=== PATIENT | male | born 1985 | race Caucasian/White ===

== ENCOUNTER 2016-10-17 14:41 | Emergency (ER) | payer OTHER ==
[2016-10-17] MEDS ORDERED: KETOROLAC 30 MG/ML VIAL (J1885) As Ordered ONE (16:33)
--- NOTE | 2016-10-17 17:10 | REP ---
CT Head without contrast HISTORY: Headache COMPARISON: None There is no intraparenchymal hemorrhage, acute infarct, mass or midline shift. The ventricular system is normal in appearance. There is no extra cerebral collection. There is no fracture. The visualized sinuses are clear. IMPRESSION: There is no intracranial lesion. Signed by Jonh Iqbal MD 10/17/2016 05:01 P
--- NOTE | 2016-10-17 17:45 | EDDOCDS ---
Physician Documentation [facility] Name: Yimi Sanchez Age: 30 yrs Sex: Male : 1985 Arrival Date: 10/17/2016 Time: 14:41 Bed PD Private MD: NO PRIMARY PHYSICIAN, . Disposition: 10/17/16 17:36 Discharged to Home/Self Care. Impression: Headache, Cough. - Condition is Stable. - Discharge Instructions: Acute Bronchitis, General Headache Without Cause. - Prescriptions for Ultram 50 mg Oral Tablet - take 1 tablet by ORAL route every 6 hours As needed MDD: 4 tabs; 12 tablet. Prednisone 20 mg Oral Tablet - take 2 tablet by ORAL route once daily for 5 days; 10 tablet. - Medication Reconciliation, Local Pharmacy Hours form. - Follow up: Emergency Department; When: As needed. Follow up: [facility]; When: Call to arrange an appointment; Reason: Wound/Symptom Recheck, Recheck today's complaints, Worsening of conditions, Continuance of care, To establish care. - Problem is an ongoing problem. - Symptoms have improved. Historical: - Allergies: SULFA (SULFONAMIDES); - Home Meds: 1. amlodipine 5 mg Oral tab once daily 2. amoxicillin-pot clavulanate 875-125 mg Oral tab every 12 hours - PMHx: Hypertension; back pain; hearing issues; - PSHx: wisdom teeth; - Social history: Smoking status: Patient states was never smoker of tobacco. No barriers to communication noted, The patient speaks fluent [place] Islander, Speaks appropriately for age. - Family history: Not pertinent. - : The pt / caregiver states he / she is not on anticoagulants. Home medication list is obtained from the patient. - Exposure Risk Screening:: None identified. Vital Signs: 10/17 14:44 BP 146 / 90; Pulse 92; Resp 18 S; Temp 100.7(O); Pulse Ox 96% on R/A; Weight 92.53 kg / gr2 203.99 lbs (R); Height 5 ft. 10 in. (177.80 cm) (R); Pain 4/10; 17:34 BP 166 / 88; Pulse 88; Resp 18; Temp 98.6(TE); Pulse Ox 95% on R/A; Pain 5/10; jrd 14:44 Body Mass Index 29.27 (92.53 kg, 177.80 cm) gr2 MDM: 16:25 ketorolac 60 mg IM once ordered. cc10 16:25 CT Head Without Contrast Ordered. EDMS 16:44 Financial registration complete. [facility] 16:44 [facility] Payment Agreement was scanned into [employer] and attached to record. [facility] Administered Medications: 16:38 Drug: ketorolac 60 mg [ketorolac 30 mg/mL (1 mL) injection solution (2 mL)] Route: IM; ead Site: left deltoid; Signatures: Dispatcher [employer] EDMT Clifton Crocker RN RN mlb1 Chely Malhotra RN RN ead Alex Parra PA-C PAMaisha Haile The chart was reviewed and I authenticate all verbal orders and agree with the evaluation and treatment provided.Attachments: 16:44 [facility] Payment Agreement gjtamika MTDD
--- NOTE | 2016-10-17 17:45 | EDDOCDS ---
Nurse's Notes [facility] Name: Yimi Sanchez Age: 30 yrs Sex: Male : 1985 Arrival Date: 10/17/2016 Time: 14:41 Bed PD Private MD: NO PRIMARY PHYSICIAN, . Diagnosis: Headache;Cough Presentation: 10/17 14:54 Presenting complaint: Patient states: Pt states he was seen at [facility] urgent care ead three days ago for sinus infection x 2 months. Was given amox-clav for 10 days. Pt states "I've just been feeling worse and I passed out last night." Pt c/o headaches and stiff neck, and pressure behind left eye. Adult Sepsis Screening: The patient does not have new or worsening altered mentation. Patient's respiratory rate is less than 22. Systolic blood pressure is greater than 100. Patient has a qSOFA score of 0- Negative Sepsis Screen. Suicide/Homicide risk assessment- the patient denies having any suicidal and/or homicidal ideations and does not present with any other emotional, behavioral or mental health complaints. Status: The patient is a dependent. Transition of care: patient was not received from another setting of care. 14:54 Acuity: ALFONSO Level 3 ead 14:54 Method Of Arrival: Walkin/Carried/Asstd ead Triage Assessment: 14:58 General: Appears in no apparent distress, uncomfortable, Behavior is appropriate for ead age, cooperative. Pain: Location: back of neck, face and scalp Pain currently is 6 out of 10 on a pain scale. HIV screening NA for this visit Offered previously. Neurological: Level of Consciousness is awake, alert, obeys commands, Oriented to person, place, time, Reports headache a syncopal episode. EENT: Reports pain in left eye. Respiratory: Airway is patent Respiratory effort is even, unlabored. Derm: Skin is pink, warm & dry. Historical: - Allergies: SULFA (SULFONAMIDES); - Home Meds: 1. amlodipine 5 mg Oral tab once daily 2. amoxicillin-pot clavulanate 875-125 mg Oral tab every 12 hours - PMHx: Hypertension; back pain; hearing issues; - PSHx: wisdom teeth; - Social history: Smoking status: Patient states was never smoker of tobacco. No barriers to communication noted, The patient speaks fluent Lao, Speaks appropriately for age. - Family history: Not pertinent. - : The pt / caregiver states he / she is not on anticoagulants. Home medication list is obtained from the patient. - Exposure Risk Screening:: None identified. Screenin:42 Screening information is obtained from the patient. Fall risk: No risks identified. mlb1 Assistance ADL's: requires no assistance with activities of daily living. Abuse/DV Screen: The patient / caregiver reports he/she is: not in a situation that causes fear, pain or injury. Nutritional screening: No deficits noted. Advance Directives: Currently, there is no health care proxy. home support is adequate. Assessment: 17:41 General: Appears in no apparent distress, comfortable, Behavior is appropriate for age, mlb1 cooperative. Pain: Location: head Pain currently is 7 out of 10 on a pain scale. Neurological: Level of Consciousness is awake, alert, Oriented to person, place, time. Respiratory: Airway is patent Respiratory effort is even, unlabored, Breath sounds are clear bilaterally. Vital Signs: 14:44 BP 146 / 90; Pulse 92; Resp 18 S; Temp 100.7(O); Pulse Ox 96% on R/A; Weight 92.53 kg gr2 (R); Height 5 ft. 10 in. (177.80 cm) (R); Pain 4/10; 17:34 BP 166 / 88; Pulse 88; Resp 18; Temp 98.6(TE); Pulse Ox 95% on R/A; Pain 5/10; jrd 14:44 Body Mass Index 29.27 (92.53 kg, 177.80 cm) gr2 Vitals: 14:44 Log In Time: October 17, 2016 at 14:44. gr2 ED Course: 14:43 Patient visited by Elijah Cardona. gr2 14:43 [facility]. gr2 14:43 NO PRIMARY PHYSICIAN, . is Private Physician. gr2 14:43 Patient moved to Waiting gr2 14:45 Patient visited by Elijah Cardona. gr2 14:45 Patient moved to Pre RCE gr2 14:56 Triage Initiated ead 16:03 Patient moved to Triage 2 ead 16:11 Patient visited by Bianca Sumner RN. ck1 16:21 Alex Parra PA-C is PHCP. cc10 16:21 Georgette Luque MD is Attending Physician. cc10 16:21 Patient visited by Alex Parra PA-C. cc10 16:21 Patient visited by Alex Parra PA-C. cc10 16:37 Patient moved to TR3 ead 16:38 Patient visited by Chely Malhotra RN. ead 16:40 Patient name changed from Yimi\\S\\\\S\\Sanchez\\S\\ to Yimi\\S\\ \\S\\Sanchez. EDMS 16:44 [facility] Payment Agreement was scanned into [employer] and attached to record. gjb 17:15 CT Head Without Contrast Returned. EDMS 17:30 Patient moved to PD2 jrd 17:31 Patient visited by Bianca Sumner,WALE. ck1 17:34 Patient visited by Reji Cárdenas PCA. jrd 17:35 [facility] is Referral Physician. cc10 17:43 No IV's were initiated during this patient's visit. No procedures done that require mlb1 assistance. 17:44 The patient / caregiver is instructed regarding the plan of care and ED course. mlb1 17:45 Patient visited by Clifton Crocker RN. mlb1 Administered Medications: 16:38 Drug: ketorolac 60 mg [ketorolac 30 mg/mL (1 mL) injection solution (2 mL)] Route: IM; ead Site: left deltoid; Order Results: Radiology Order: CT Head Without Contrast Test: CT Head Without Contrast REASON FOR EXAMINATION: villarreal; CT Head without contrast; ; HISTORY: Headache; ; COMPARISON: None; ; There is no intraparenchymal hemorrhage, acute infarct, mass or midline shift.; The ventricular system is normal in appearance. There is no extra cerebral; collection. There is no fracture. The visualized sinuses are clear.; ; IMPRESSION: There is no intracranial lesion.; ; ; ; ; Signed by; Jonh Iqbal MD 10/17/2016 05:01 P; Outcome: 17:36 Discharge ordered by Provider. cc10 17:43 Discharge Assessment: Patient awake, alert and oriented x 3. No cognitive and/or mlb1 functional deficits noted. Patient verbalized understanding of disposition instructions. patient administered narcotics - no. The following High Risk Discharge criteria are identified: None. Discharged to home ambulatory. Condition: good. Discharge instructions given to patient, Instructed on discharge instructions, follow up and referral plans. Demonstrated understanding of instructions, medications, Pt was receptive of discharge instructions/ teaching. Prescriptions given X 2. No special radiology studies were completed. Property sent home with patient. 17:45 Patient left the ED. mlb1 Signatures: Dispatcher [employer] EDDE Clifton Crocker RN RN mlb1 Bianca SumnerRN RN ck1 Elijah Cardona gr2 Chely Malhotra,RN RN Alex Posada, PA-C PA-C cc10 Reji Cárdenas PCA RESIDENCY PROGRAM COORDINATOR Maisha Tadeo MTDD
--- NOTE | 2016-10-19 18:45 | EDDOCDS ---
Nurse's Notes [facility] Name: Yimi Sanchez Age: 30 yrs Sex: Male : 1985 Arrival Date: 10/17/2016 Time: 14:41 Bed PD Private MD: NO PRIMARY PHYSICIAN, . Diagnosis: Headache;Cough Presentation: 10/17 14:54 Presenting complaint: Patient states: Pt states he was seen at [facility] urgent care ead three days ago for sinus infection x 2 months. Was given amox-clav for 10 days. Pt states "I've just been feeling worse and I passed out last night." Pt c/o headaches and stiff neck, and pressure behind left eye. Adult Sepsis Screening: The patient does not have new or worsening altered mentation. Patient's respiratory rate is less than 22. Systolic blood pressure is greater than 100. Patient has a qSOFA score of 0- Negative Sepsis Screen. Suicide/Homicide risk assessment- the patient denies having any suicidal and/or homicidal ideations and does not present with any other emotional, behavioral or mental health complaints. Status: The patient is a dependent. Transition of care: patient was not received from another setting of care. 14:54 Acuity: ALFONSO Level 3 ead 14:54 Method Of Arrival: Walkin/Carried/Asstd ead Triage Assessment: 14:58 General: Appears in no apparent distress, uncomfortable, Behavior is appropriate for ead age, cooperative. Pain: Location: back of neck, face and scalp Pain currently is 6 out of 10 on a pain scale. HIV screening NA for this visit Offered previously. Neurological: Level of Consciousness is awake, alert, obeys commands, Oriented to person, place, time, Reports headache a syncopal episode. EENT: Reports pain in left eye. Respiratory: Airway is patent Respiratory effort is even, unlabored. Derm: Skin is pink, warm & dry. Historical: - Allergies: SULFA (SULFONAMIDES); - Home Meds: 1. amlodipine 5 mg Oral tab once daily 2. amoxicillin-pot clavulanate 875-125 mg Oral tab every 12 hours - PMHx: Hypertension; back pain; hearing issues; - PSHx: wisdom teeth; - Social history: Smoking status: Patient states was never smoker of tobacco. No barriers to communication noted, The patient speaks fluent Malay, Speaks appropriately for age. - Family history: Not pertinent. - : The pt / caregiver states he / she is not on anticoagulants. Home medication list is obtained from the patient. - Exposure Risk Screening:: None identified. Screenin:42 Screening information is obtained from the patient. Fall risk: No risks identified. mlb1 Assistance ADL's: requires no assistance with activities of daily living. Abuse/DV Screen: The patient / caregiver reports he/she is: not in a situation that causes fear, pain or injury. Nutritional screening: No deficits noted. Advance Directives: Currently, there is no health care proxy. home support is adequate. Assessment: 17:41 General: Appears in no apparent distress, comfortable, Behavior is appropriate for age, mlb1 cooperative. Pain: Location: head Pain currently is 7 out of 10 on a pain scale. Neurological: Level of Consciousness is awake, alert, Oriented to person, place, time. Respiratory: Airway is patent Respiratory effort is even, unlabored, Breath sounds are clear bilaterally. Vital Signs: 14:44 BP 146 / 90; Pulse 92; Resp 18 S; Temp 100.7(O); Pulse Ox 96% on R/A; Weight 92.53 kg gr2 (R); Height 5 ft. 10 in. (177.80 cm) (R); Pain 4/10; 17:34 BP 166 / 88; Pulse 88; Resp 18; Temp 98.6(TE); Pulse Ox 95% on R/A; Pain 5/10; jrd 14:44 Body Mass Index 29.27 (92.53 kg, 177.80 cm) gr2 Vitals: 14:44 Log In Time: October 17, 2016 at 14:44. gr2 ED Course: 14:43 Patient visited by Elijah Cardona. gr2 14:43 [facility]. gr2 14:43 NO PRIMARY PHYSICIAN, . is Private Physician. gr2 14:43 Patient moved to Waiting gr2 14:45 Patient visited by Elijah Cardona. gr2 14:45 Patient moved to Pre RCE gr2 14:56 Triage Initiated ead 16:03 Patient moved to Triage 2 ead 16:11 Patient visited by Bianca Sumner RN. ck1 16:21 Alex Parra PA-C is PHCP. cc10 16:21 Georgette Luque MD is Attending Physician. cc10 16:21 Patient visited by Alex Parra PA-C. cc10 16:21 Patient visited by Alex Parra PA-C. cc10 16:37 Patient moved to TR3 ead 16:38 Patient visited by Chely Malhotra,WALE. ead 16:40 Patient name changed from Yimi\\S\\\\S\\Sanchez\\S\\ to Yimi\\S\\ \\S\\Sanchez. EDMS 16:44 [facility] Payment Agreement was scanned into [employer] and attached to record. gjb 17:15 CT Head Without Contrast Returned. EDMS 17:30 Patient moved to PD jrd 17:31 Patient visited by Bianca Sumner,WALE. ck1 17:34 Patient visited by Reji Cárdenas PCA. jrd 17:35 [facility] is Referral Physician. cc10 17:43 No IV's were initiated during this patient's visit. No procedures done that require mlb1 assistance. 17:44 The patient / caregiver is instructed regarding the plan of care and ED course. mlb1 17:45 Patient visited by Clifton Crocker RN. mlb1 10/18 12:07 T-Sheet-- Draft Copy was scanned into [employer] and attached to record. gb Administered Medications: 10/17 16:38 Drug: ketorolac 60 mg [ketorolac 30 mg/mL (1 mL) injection solution (2 mL)] Route: IM; ead Site: left deltoid; Order Results: Radiology Order: CT Head Without Contrast Test: CT Head Without Contrast REASON FOR EXAMINATION: villarreal; CT Head without contrast; ; HISTORY: Headache; ; COMPARISON: None; ; There is no intraparenchymal hemorrhage, acute infarct, mass or midline shift.; The ventricular system is normal in appearance. There is no extra cerebral; collection. There is no fracture. The visualized sinuses are clear.; ; IMPRESSION: There is no intracranial lesion.; ; ; ; ; Signed by; Jonh Iqbal MD 10/17/2016 05:01 P; Outcome: 17:36 Discharge ordered by Provider. cc10 17:43 Discharge Assessment: Patient awake, alert and oriented x 3. No cognitive and/or mlb1 functional deficits noted. Patient verbalized understanding of disposition instructions. patient administered narcotics - no. The following High Risk Discharge criteria are identified: None. Discharged to home ambulatory. Condition: good. Discharge instructions given to patient, Instructed on discharge instructions, follow up and referral plans. Demonstrated understanding of instructions, medications, Pt was receptive of discharge instructions/ teaching. Prescriptions given X 2. No special radiology studies were completed. Property sent home with patient. 17:45 Patient left the ED. mlb1 Signatures: Dispatcher MedHost EDMS Genesis John, Reg Reg Obi, Clifton Squires RN RN mlb1 Bianca SumnerRN RN ck1 Elijah Cardona gr2 Chely Malhotra,RN RN Alex Posada, PA-C PA-C cc10 Reji Cárdenas PCA PCA jrd Beck, Gabriela gjb Chart Complete MAGI
--- NOTE | 2016-10-19 18:45 | EDDOCDS ---
Physician Documentation [facility] Name: Yimi Sanchez Age: 30 yrs Sex: Male : 1985 Arrival Date: 10/17/2016 Time: 14:41 Bed PD Private MD: NO PRIMARY PHYSICIAN, . Disposition: 10/17/16 17:36 Discharged to Home/Self Care. Impression: Headache, Cough. - Condition is Stable. - Discharge Instructions: Acute Bronchitis, General Headache Without Cause. - Prescriptions for Ultram 50 mg Oral Tablet - take 1 tablet by ORAL route every 6 hours As needed MDD: 4 tabs; 12 tablet. Prednisone 20 mg Oral Tablet - take 2 tablet by ORAL route once daily for 5 days; 10 tablet. - Medication Reconciliation, Local Pharmacy Hours form. - Follow up: Emergency Department; When: As needed. Follow up: [facility]; When: Call to arrange an appointment; Reason: Wound/Symptom Recheck, Recheck today's complaints, Worsening of conditions, Continuance of care, To establish care. - Problem is an ongoing problem. - Symptoms have improved. Historical: - Allergies: SULFA (SULFONAMIDES); - Home Meds: 1. amlodipine 5 mg Oral tab once daily 2. amoxicillin-pot clavulanate 875-125 mg Oral tab every 12 hours - PMHx: Hypertension; back pain; hearing issues; - PSHx: wisdom teeth; - Social history: Smoking status: Patient states was never smoker of tobacco. No barriers to communication noted, The patient speaks fluent Ivorian, Speaks appropriately for age. - Family history: Not pertinent. - : The pt / caregiver states he / she is not on anticoagulants. Home medication list is obtained from the patient. - Exposure Risk Screening:: None identified. Vital Signs: 10/17 14:44 BP 146 / 90; Pulse 92; Resp 18 S; Temp 100.7(O); Pulse Ox 96% on R/A; Weight 92.53 kg / gr2 203.99 lbs (R); Height 5 ft. 10 in. (177.80 cm) (R); Pain 4/10; 17:34 BP 166 / 88; Pulse 88; Resp 18; Temp 98.6(TE); Pulse Ox 95% on R/A; Pain 5/10; jrd 14:44 Body Mass Index 29.27 (92.53 kg, 177.80 cm) gr2 MDM: 16:25 ketorolac 60 mg IM once ordered. cc10 16:25 CT Head Without Contrast Ordered. EDDC 16:44 Financial registration complete. [facility] 16:44 [facility] Payment Agreement was scanned into [employer] and attached to record. [facility] 10/18 12:07 T-Sheet-- Draft Copy was scanned into [employer] and attached to record. gb Administered Medications: 10/17 16:38 Drug: ketorolac 60 mg [ketorolac 30 mg/mL (1 mL) injection solution (2 mL)] Route: IM; ead Site: left deltoid; Signatures: Dispatcher MedHost EDMS Genesis John, Reg Reg gb Clifton Crocker RN RN mlb1 Chely MalhotraRN RN ead Alex Parra, PA-C PA-C ccMaisha Moon The chart was reviewed and I authenticate all verbal orders and agree with the evaluation and treatment provided.Attachments: 16:44 [facility] Payment Agreement [facility] 10/18 12:07 T-Sheet-- Draft Copy gb Chart Complete MTDD
--- NOTE | 2016-10-19 18:45 | EDDOCDS ---
Physician Documentation [facility] Name: Yimi Sanchez Age: 30 yrs Sex: Male : 1985 Arrival Date: 10/17/2016 Time: 14:41 Bed PD Private MD: NO PRIMARY PHYSICIAN, . Disposition: 10/17/16 17:36 Discharged to Home/Self Care. Impression: Headache, Cough. - Condition is Stable. - Discharge Instructions: Acute Bronchitis, General Headache Without Cause. - Prescriptions for Ultram 50 mg Oral Tablet - take 1 tablet by ORAL route every 6 hours As needed MDD: 4 tabs; 12 tablet. Prednisone 20 mg Oral Tablet - take 2 tablet by ORAL route once daily for 5 days; 10 tablet. - Medication Reconciliation, Local Pharmacy Hours form. - Follow up: Emergency Department; When: As needed. Follow up: [facility]; When: Call to arrange an appointment; Reason: Wound/Symptom Recheck, Recheck today's complaints, Worsening of conditions, Continuance of care, To establish care. - Problem is an ongoing problem. - Symptoms have improved. Historical: - Allergies: SULFA (SULFONAMIDES); - Home Meds: 1. amlodipine 5 mg Oral tab once daily 2. amoxicillin-pot clavulanate 875-125 mg Oral tab every 12 hours - PMHx: Hypertension; back pain; hearing issues; - PSHx: wisdom teeth; - Social history: Smoking status: Patient states was never smoker of tobacco. No barriers to communication noted, The patient speaks fluent Greek, Speaks appropriately for age. - Family history: Not pertinent. - : The pt / caregiver states he / she is not on anticoagulants. Home medication list is obtained from the patient. - Exposure Risk Screening:: None identified. Vital Signs: 10/17 14:44 BP 146 / 90; Pulse 92; Resp 18 S; Temp 100.7(O); Pulse Ox 96% on R/A; Weight 92.53 kg / gr2 203.99 lbs (R); Height 5 ft. 10 in. (177.80 cm) (R); Pain 4/10; 17:34 BP 166 / 88; Pulse 88; Resp 18; Temp 98.6(TE); Pulse Ox 95% on R/A; Pain 5/10; jrd 14:44 Body Mass Index 29.27 (92.53 kg, 177.80 cm) gr2 MDM: 16:25 ketorolac 60 mg IM once ordered. cc10 16:25 CT Head Without Contrast Ordered. EDKY 16:44 Financial registration complete. [facility] 16:44 [facility] Payment Agreement was scanned into [employer] and attached to record. [facility] 10/18 12:07 T-Sheet-- Draft Copy was scanned into [employer] and attached to record. gb Administered Medications: 10/17 16:38 Drug: ketorolac 60 mg [ketorolac 30 mg/mL (1 mL) injection solution (2 mL)] Route: IM; ead Site: left deltoid; Signatures: Dispatcher MedHost EDMS Genesis John, Reg Reg gb Clifton Crocker RN RN mlb1 Chely MalhotraRN RN ead Alex Parra, PA-C PA-C ccMaisha Moon The chart was reviewed and I authenticate all verbal orders and agree with the evaluation and treatment provided.Attachments: 16:44 [facility] Payment Agreement [facility] 10/18 12:07 T-Sheet-- Draft Copy gb Chart Complete MTDD
== END 2016-10-17 17:45 | disposition home or self-care (01) ==
LOC: M ED 14:41
DX: R51 Headache (principal); J20.9 Acute bronchitis, unspecified; I10 Essential (primary) hypertension; M54.9 Dorsalgia, unspecified; H90.5 Unspecified sensorineural hearing loss; Z79.899 Other long term (current) drug therapy; Z88.2 Allergy status to sulfonamides
CPT/HCPCS: 70450; 96372; 99283; J1885